=== PATIENT | male | born 1955 | race African-American/Black ===

== ENCOUNTER 2019-03-30 03:13 | Emergency (ER) | payer OTHER, MEDICAID ==
[~2019-03-30] VITALS: Ht 180.3 cm; Wt 100.0 kg
[~2019-03-30 03:13] MED LIST: ASPI-1393 PO; ATOR40TA70 PO; AZIT500T2 PO; CHOL100053 PO; COR25 PO; FURO40TA5 PO; HYDR-4133 PO; ISOS10TA2 PO; LOSA50TA41 PO; METH4TAB3 PO; POTA10CA42 PO
[2019-03-30] MEDS ORDERED: ACETAMINOPHEN 325MG TABLET PO ONE (04:45)
[2019-03-30 06:08] VITALS: BP 141/90
== END 2019-03-30 06:28 | disposition home or self-care (01) ==
LOC: ER 03:13
DX: I10 Essential (primary) hypertension (principal); I61.9 Nontraumatic intracerebral hemorrhage, unspecified; Z87.891 Personal history of nicotine dependence; Z79.82 Long term (current) use of aspirin; Z79.899 Other long term (current) drug therapy
CPT/HCPCS: 93005; 99283

== ENCOUNTER 2022-09-20 05:59 | Emergency (ER) | payer OTHER ==
[~2022-09-20] VITALS: Ht 180.3 cm; Wt 95.4 kg
[~2022-09-20 05:59] MED LIST changes: -ASPI-1393 PO; +ASPI-1497 PO
[2022-09-20] MEDS ORDERED: IBUPROFEN 400MG TABLET PO ONE (09:30)
[2022-09-20] MEDS ORDERED: ACETAMINOPHEN 325MG TABLET PO ONE (09:30)
[2022-09-20 09:35] VITALS: BP 145/82
[2022-09-20 10:08] LABS: BASOPHILS % 0.4 % (0.0-2.0); EOSINOPHILS % 2.6 % (0.0-5.0); HEMATOCRIT. 40.8 % (42.0-52.0); HEMOGLOBIN. 13.3 g/dL (14.0-18.0); LYMPHOCYTES % 32.4 % (20.0-50.0); MEAN CORPUSCULAR HEMOGLOBIN 29.8 pg (28.0-32.0); MEAN CORPUSCULAR VOLUME 91.7 fL (80.0-94.0); MEAN PLATELET VOLUME 6.9 fl (7.4-10.4); MONOCYTES % 6.3 % (2.0-8.0); NEUTROPHILS % 58.3 % (40.0-76.0); PLATELET 214 x1000/uL (130-400); RED BLOOD CELL COUNT 4.45 mill/uL (4.7-6.1); RED CELL DISTRIBUTION WIDTH 14.9 % (11.6-14.6)
[2022-09-20 10:22] LABS: CHLORIDE 109 mEq/L (98-107)
[2022-09-20 10:33] LABS: CREATINE KINASE 332 IU/L (39-308)
[2022-09-20] MEDS ORDERED: CALCIUM GLUCONATE 1,000 MG in DEXT 5% WATER 100 ML IV ONE (13:15)
[2022-09-20] MEDS ORDERED: CALCIUM GLUCONATE 1000 MG in DEXTROSE 5% WATER 100 ML IV NR (13:30)
[2022-09-20] MEDS ORDERED: CALCIUM GLUCONATE 1GM PREMIX 50 ML IV NR (13:30)
[2022-09-20] MEDS: ALBUTEROL (0.083%) 2.5MG/3ML NEB HHN SCH ×3 (14:00→14:38)
[2022-09-20 18:11] LABS: CHLORIDE 107 mEq/L (98-107)
== END 2022-09-20 18:35 | disposition home or self-care (01) ==
LOC: ER 05:59 → CANBEDREQ 19:11
DX: N28.9 Disorder of kidney and ureter, unspecified (principal); M79.651 Pain in right thigh; E11.9 Type 2 diabetes mellitus without complications; N17.9 Acute kidney failure, unspecified; I12.9 Hypertensive chronic kidney disease with stage 1 through stage 4 chronic kidney disease, or unspecified chronic kidney disease; E11.22 Type 2 diabetes mellitus with diabetic chronic kidney disease; N18.4 Chronic kidney disease, stage 4 (severe); Z79.4 Long term (current) use of insulin; Z79.84 Long term (current) use of oral hypoglycemic drugs; Z86.79 Personal history of other diseases of the circulatory system
CPT/HCPCS: 36415; 73552; 80053; 82550; 85025; 93970; 94640; 99285; J0610; J7060

== ENCOUNTER 2022-11-20 06:34 | Emergency (ER) | payer OTHER ==
[~2022-11-20] VITALS: Ht 177.8 cm; Wt 77.0 kg
[2022-11-20 08:08] LABS: HEMOGLOBIN. 12.5 g/dL (14.0-18.0); RED BLOOD CELL COUNT 4.06 mill/uL (4.7-6.1)
[2022-11-20 08:09] LABS: EOSINOPHILS % 3.1 % (0.0-5.0); HEMATOCRIT. 36.7 % (42.0-52.0); LYMPHOCYTES % 29.1 % (20.0-50.0); MEAN CORPUSCULAR HEMOGLOBIN 30.8 pg (28.0-32.0); MEAN CORPUSCULAR VOLUME 90.4 fL (80.0-94.0); MEAN PLATELET VOLUME 6.9 fl (7.4-10.4); MONOCYTES % 8.7 % (2.0-8.0); NEUTROPHILS % 58.1 % (40.0-76.0); PLATELET 188 x1000/uL (130-400); RED CELL DISTRIBUTION WIDTH 15.4 % (11.6-14.6)
[2022-11-20 08:15] LABS: CHLORIDE 110 mEq/L (98-107)
[2022-11-20 08:28] LABS: INR 0.9; PROTHROMBIN TIME 9.8 sec (9.6-11.0)
[2022-11-20 11:20] VITALS: BP 143/80
== END 2022-11-20 11:56 | disposition home or self-care (01) ==
LOC: ER 06:45
DX: G45.9 Transient cerebral ischemic attack, unspecified (principal); I12.9 Hypertensive chronic kidney disease with stage 1 through stage 4 chronic kidney disease, or unspecified chronic kidney disease; I44.0 Atrioventricular block, first degree; N18.9 Chronic kidney disease, unspecified; E11.22 Type 2 diabetes mellitus with diabetic chronic kidney disease; D64.9 Anemia, unspecified
CPT/HCPCS: 36415; 70551; 71045; 80053; 83880; 84484; 85025; 93005; 99285